=== PATIENT | male | born 2000 | race Two or more races ===

== ENCOUNTER 2023-03-19 20:19 | Emergency (ER) | payer OTHER ==
[~2023-03-19] VITALS: Ht 160 cm; Wt 72.7 kg
[2023-03-19 20:32] VITALS: BP 132/82; PULSE 82; RESP 17; O2SAT 94
[2023-03-19] MEDS ORDERED: IBUP-1456 PO (22:50)
[2023-03-19] MEDS ORDERED: CEPH500C PO (22:50)
[2023-03-19] MEDS ORDERED: KETOROLAC TROMETH 60MG/2ML VIAL IM ONE (23:00)
[2023-03-19] MEDS ORDERED: TETANUS-DIPTH-ACEL PERTUSSIS 0.5ML SYR Tdap IM ONE (23:00)
[2023-03-19] MEDS ORDERED: cefTRIAXone SOD 1,000 MG VL IM ONE (23:00)
== END 2023-03-19 23:08 | disposition home or self-care (01) ==
LOC: ER 20:19
DX: S60.412A Abrasion of right middle finger, initial encounter (principal); X58.XXXA Exposure to other specified factors, initial encounter; Y93.89 Activity, other specified; Y92.89 Other specified places as the place of occurrence of the external cause; Y99.8 Other external cause status
CPT/HCPCS: 73130; 90471; 90715; 96372; 99284; J0696; J1885